=== PATIENT | male | born 1970 | race Caucasian/White ===

== ENCOUNTER 2017-11-09 14:17 | Observation (INO) ==
[2017-11-09] MEDS ORDERED: 0.9 % Sodium Chloride 1,000 ML IVC ONE (14:34)
[2017-11-09] MEDS ORDERED: Aspirin 325 MG TABLET PO ONE (14:34)
[2017-11-09 14:51] LABS: Hematocrit 45.4 % (37.5-50.1); Hemoglobin 14.7 g/dL (12.9-16.9); Immature Granulocytes % 0.3 % (0-4); Lymphocytes % 24.5 %; Mean Corpuscular HGB Conc 32.4 g/dL (31.6-35.5); Mean Corpuscular Hemoglobin 26.5 pg (28.0-33.3); Mean Corpuscular Volume 81.9 fL (83.0-100.0); Mean Platelet Volume 9.6 fL (9.4-12.4); Monocytes % 10.8 %; Platelet Count 291 K/mcL (140-400); Red Blood Count 5.54 M/mcL (4.19-5.50); Red Cell Distribution Width 13.6 % (11.5-14.5); Segmented Neutrophils % 58.2 %
[2017-11-09 14:52] LABS: Basophils # 0.1 K/mcL (0.0-0.2); Basophils % 0.9 %; Eosinophils # 0.5 K/mcL (0.0-0.6); Eosinophils % 5.3 %; Lymphocytes # 2.1 K/mcL (0.6-4.6); Monocytes # 0.9 K/mcL (0.0-1.3)
[2017-11-09 15:01] LABS: INR 1.2; Prothrombin Time 13.8 Seconds (9.4-12.1)
[2017-11-09 15:03] LABS: Activated Partial Thrombo Time 31.6 Seconds (26.0-36.0)
[2017-11-09 15:12] LABS: Troponin I < 0.03 ng/mL (< 0.04)
[2017-11-09 15:15] LABS: BUN/Creatinine Ratio 16 (6-26); Blood Urea Nitrogen 16 mg/dL (6-20); Calcium 9.3 mg/dL (8.6-10.3); Carbon Dioxide 24 mEq/L (23-29); Chloride 103 mEq/L (98-107); Glucose 140 mg/dL (70-105); Osmolality,Calculated 287 (280-300); Potassium 4.1 mEq/L (3.5-5.1); Sodium 137 mEq/L (136-145); eGFR For Non-African Americans > 60 (> 60)
[2017-11-09 15:26] LABS: Thyroid Stimulating Hormone 2.575 mcIU/mL (0.340-5.600)
[2017-11-09] MEDS ORDERED: Isovue-370 500 ML INFUS..BTL IV ONE (15:34)
--- NOTE | 2017-11-09 16:12 | Emergency Department Note ---
Disposition Clinical Impression: Atrial fibrillation with RVR, New onset a-fib, Abnormal CT of the chest Disposition: Admitted As Inpatient Condition: Good Referrals: Caroline Slade CNP [Primary Care Provider] - Forms: ED Satisfaction Letter General Adult HPI - General Chief complaint: ED Arrhythmia/Palpitations Stated complaint: CP/ A-fib Time Seen by Provider: 11/09/17 14:34 Source: patient Limitations: no limitations Nursing Notes Reviewed: Yes Vital Signs Reviewed: Yes - History of Present Illness HPI Narrative: Patient presents today for evaluation of chest pain and palpitations. Patient was seen yesterday for evaluation of chest pain she describes is in center of his chest and one or 2. Nothing makes chest pain better or worse. Also not better with or worse with exertion. Not worse food. Not worse sitting up or lying down. Patient's initial presentation today is for palpitations. Patient' s heart rate 160. Patient with A. fib RVR. Patient with no previous diagnosis of this. Patient has had episodes of palpitations in the past. The patient has no family history of A. fib or WPW. The patient does not have any history of PE and no family history of predisposition to venous thrombus embolism. Pain Scale: 0 - Related Data Home Medications Medication Instructions Recorded Confirmed No Known Home Drugs 11/09/17 11/09/17 Allergies Allergy/AdvReac Type Severity Reaction Status Date / Time No Known Allergies Allergy Verified 12/08/16 08:47 Review of Systems: As Per HPI Constitutional: Denies: fever, chills Cardiovascular: Reports: chest pain, palpitations, dyspnea on exertion Respiratory: Reports: dyspnea. Denies: cough Gastrointestinal: Denies: abdominal pain, nausea, vomiting Genitourinary: Denies: urgency Musculoskeletal: Denies: back pain, neck pain Integumentary: Denies: rash, abrasion Neurological: Denies: headache Endocrine: Denies: fatigue Past Medical History - Past Medical History Medical history: Reports: hyperlipidemia Surgical history: Reports: bariatric surgery Psychiatric history: Reports: no psych history - Social History Smoking Status: Never smoker Smokeless Tobacco Status: No Alcohol use: Reports: none Drug use: Reports: none Physical Exam General: Mild dyspnea and discomfort secondary to tachycardia Head: Normocephalic Atraumatic Eyes: PERRL, EOMI ENT: Airway patent, no stridor Neck: supple, Chest: Lungs clear to auscultation bilateral Cardiac: Tachycardia and irregular rhythm Abdomen: soft, nontender, nondistended; no guarding, rebound, or tenderness to percussion Musculoskeletal: Calves symmetric, nontender, no palpable cord Skin: No rash, normal skin tone Neuro: Alert and Oriented to person, place, and time; - General Limitations: no limitations General appearance: alert Course - Reevaluation(s) Reevaluation #1: Patient was given Cardizem and placed on a drip with resolution of his atrial fibrillation. Patient now in sinus rhythm. Patient's blood work is otherwise unremarkable. He does have concern because of his mother having abnormal lung mass causing her to have significant cardiac and pulmonary problems. At this point the patient's symptoms are otherwise unexplained. He continues to have this nondescript chest pain in the center of his chest. We did perform a CTA which was negative. Patient does have lymph nodes that will need reevaluation in 3-6 months. Patient has been notified of this at bedside. Family present. Patient be admitted to the hospital service for further evaluation. Patient's chads 2 score - Consultations Consultation #1: Discussed with hospitalist. Patient except for admission. Vital Signs Temperature 97.6 F 11/09/17 14:21 Pulse Rate 162 11/09/17 14:21 Respiratory Rate 18 11/09/17 14:21 Blood Pressure 146/95 11/09/17 14:21 O2 Sat by Pulse Oximetry 97 11/09/17 14:21 Temperature 97.6 F 11/09/17 14:21 Pulse Rate 62 11/09/17 17:52 Respiratory Rate 16 11/09/17 17:52 Blood Pressure 121/82 11/09/17 17:52 O2 Sat by Pulse Oximetry 96 11/09/17 17:52 Oxygen Delivery Oxygen Delivery Room Air Medical Decision Making - Medical Records Medical records reviewed: Yes I reviewed the patient's medical records. - Lab Data Lab results reviewed: Yes I reviewed the patient's lab results. Result diagrams: 11/09/17 14:34 11/09/17 14:34 Lab Results 11/09/17 11/09/17 11/09/17 Range/Units 14:34 14:34 14:34 WBC 8.7 (4.3-11.1) K/mcL RBC 5.54 H (4.19-5.50) M/mcL Hgb 14.7 (12.9-16.9) g/dL Hct 45.4 (37.5-50.1) % MCV 81.9 L (83.0-100.0) fL MCH 26.5 L (28.0-33.3) pg MCHC 32.4 (31.6-35.5) g/dL RDW 13.6 (11.5-14.5) % Plt Count 291 (140-400) K/mcL MPV 9.6 (9.4-12.4) fL Immature Gran % 0.3 (0-4) % Seg Neutrophils % 58.2 % Lymphocytes % 24.5 % Monocytes % 10.8 % Eosinophils % 5.3 % Basophils % 0.9 % Neutrophils # 5.0 (1.6-8.9) K/mcL Lymphocytes # 2.1 (0.6-4.6) K/mcL Monocytes # 0.9 (0.0-1.3) K/mcL Eosinophils # 0.5 (0.0-0.6) K/mcL Basophils # 0.1 (0.0-0.2) K/mcL PT 13.8 H (9.4-12.1) Seconds INR 1.2 APTT 31.6 (26.0-36.0) Seconds Sodium 137 (136-145) mEq/L Potassium 4.1 (3.5-5.1) mEq/L Chloride 103 (98-107) mEq/L Carbon Dioxide 24 (23-29) mEq/L BUN 16 (6-20) mg/dL Creatinine 1.00 (0.70-1.30) mg/dL Est GFR ( Amer) > 60 (> 60) Est GFR (Non-Af Amer) > 60 (> 60) BUN/Creatinine Ratio 16 (6-26) Glucose 140 H (70-105) mg/dL Calculated Osmolality 287 (280-300) Calcium 9.3 (8.6-10.3) mg/dL Magnesium 2.1 (1.6-2.6) mg/dL Troponin I < 0.03 (< 0.04) ng/mL TSH 2.575 (0.340-5.600) mcIU/mL - Radiology Data Radiology results reviewed: Yes I reviewed the patient's radiology results. - EKG Data EKG #1 EKG attestation: Yes I reviewed and interpreted this EKG. EKG results narrative: EKG shows atrial fibrillation with RVR with a ventricular rate of 162. QRS 97. QTC 370. Patient has no significant ST elevations or depressions. EKG #2 EKG attestation: Yes I reviewed and interpreted this EKG. EKG results narrative: EKG shows sinus rhythm with ventricular rate 67. AL 159. QRS 90. QTC 404. No ST elevations or depressions.
[2017-11-09 17:23] LABS: Magnesium 2.1 mg/dL (1.6-2.6)
[2017-11-09] MEDS ORDERED: Naloxone 0.4 MG/ML INJ IVP PRN (19:11)
--- NOTE | 2017-11-09 20:55 | Internal Med History&Physical ---
Date of Encounter: 11/09/17 Time of Encounter: 19:20 Internal Medicine - H&P: HPI Chief complaint: palpitations History of present illness: Mr. London is a 46 year old male with past medical history of morbid obesity status post bariatric surgery presented to the ED with palpitation. He was actually evaluated in the ED for similar complaints yesterday. He has been experiencing palpitation for the last several days along with chest pain. Substernal, non-radiating, no aggravating/relieving factors, 2-3/10 in intensity. Only happens when he gets palpitation. Denies any shortness of breath, cough, sputum production, fever/chills, or nausea/vomiting. No GI/ symptoms. In the ER, he had a heart rate of 162 but otherwise afebrile and normotensive. EKG showed A. fib with RVR. Other laboratory workup was largely negative including negative troponin and normal TSH. Electrolytes within normal limits. He was started on diltiazem drip and converted to normal sinus rhythm at the time of my interview. He is admitted for further management. Past Med Surg Social Fam HX - Past Medical History Medical history: hyperlipidemia Psychiatric history: no psych history - Past Surgical History Surgical History: bariatric surgery Additional surgical history: r shoulder surgery Bariatric sx - Social History Smoking Status: Never smoker Smokeless Tobacco Status: No Alcohol use: none Drug use: none Internal Medicine - H&P: Meds No Known Home Drugs 11/09/17 [History] 3 Allergy/AdvReac Type Severity Reaction Status Date / Time No Known Allergies Allergy Verified 12/08/16 08:47 All Systems PM: A 10-system review of systems was performed and is negative for pertinent findings except as documented above in the HPI. - Constitutional Vitals: Temp Pulse Resp BP Pulse Ox 97.6 F 76 16 124/76 96 11/09/17 14:21 11/09/17 20:00 11/09/17 20:13 11/09/17 20:13 11/09/17 19:05 Exam: General: Alert and oriented HEENT:EOM, pupils equal, round, and reactive. Cardiovascular:Normal S1 & S2, no murmurs or gallops. No JVD. Pulse regular. Lungs:Normal breath sounds, no wheezes or crackles. Abdomen:Soft, non-tender, no rigidity. Extremities:No deformity, no edema or tenderness, no joint swelling. Neurological:Normal cognition and motor skills. Skin:Normal color, no rash, no lesions. Pulses:Carotid and radial pulses normal +2. Rest of the physical exam is non-contributory Internal Med - H&P Results - Labs CBC & Chem 7: 11/09/17 14:34 11/09/17 14:34 - Assessment and plan (1) Atrial fibrillation with RVR Current Visit: Yes Status: Acute Assessment and plan: New-onset CHADSVASC score of 0 for now, unknown LV function or presence of DM Currently on diltiazem drip at 10 mg per hour, in sinus rhythm. Continue for now , can transition to oral equivalent tomorrow morning telemetry overnight Echocardiogram for LV function, check A1c recalculate score tomorrow for candidacy of AC trend troponin to rule out ACS (2) Chest pain Current Visit: No Status: Acute Assessment and plan: Occurs only with palpitation Trend troponin and Echo as above Qualifiers: Chest pain type: unspecified Qualified Code(s): R07.9 - Chest pain, unspecified (3) Morbid obesity Current Visit: Yes Status: Acute Assessment and plan: Status post bariatric surgery Suspect underlying LOREN also contributing for afib recommended outpatient sleep study (4) DVT prophylaxis Current Visit: Yes Status: Acute Assessment and plan: scd - Time Spent With Patient Total time spent is greater than 50% in coordination of care (as documented) at patient's floor/unit and/or counseling patient:
[2017-11-09] MEDS ORDERED: Perflutren Lipid Microsphere 1.3 ML in 0.9 % Sodium Chloride 8.7 ML IVP ONE (22:15)
[2017-11-09] MEDS ORDERED: Perflutren Lipid Microsphere 2 ML VIAL ONE (22:21)
[2017-11-10 05:02] LABS: Basophils # 0.1 K/mcL (0.0-0.2); Basophils % 1.1 %; Eosinophils # 0.6 K/mcL (0.0-0.6); Eosinophils % 7.8 %; Hematocrit 40.1 % (37.5-50.1); Hemoglobin 12.8 g/dL (12.9-16.9); Immature Granulocytes % 0.4 % (0-4); Lymphocytes # 2.1 K/mcL (0.6-4.6); Lymphocytes % 28.9 %; Mean Corpuscular HGB Conc 31.9 g/dL (31.6-35.5); Mean Corpuscular Hemoglobin 26.4 pg (28.0-33.3); Mean Corpuscular Volume 82.9 fL (83.0-100.0); Mean Platelet Volume 9.7 fL (9.4-12.4); Monocytes # 0.8 K/mcL (0.0-1.3); Monocytes % 10.7 %; Neutrophils # 3.7 K/mcL (1.6-8.9); Platelet Count 252 K/mcL (140-400); Red Blood Count 4.84 M/mcL (4.19-5.50); Red Cell Distribution Width 13.7 % (11.5-14.5); Segmented Neutrophils % 51.1 %
[2017-11-10 05:19] LABS: BUN/Creatinine Ratio 21 (6-26); Blood Urea Nitrogen 17 mg/dL (6-20); Calcium 8.8 mg/dL (8.6-10.3); Carbon Dioxide 23 mEq/L (23-29); Chloride 105 mEq/L (98-107); Glucose 148 mg/dL (70-105); Magnesium 1.9 mg/dL (1.6-2.6); Osmolality,Calculated 288 (280-300); Potassium 3.9 mEq/L (3.5-5.1); Sodium 137 mEq/L (136-145); eGFR For Non-African Americans > 60 (> 60)
--- NOTE | 2017-11-10 10:02 | Electrocardiograph Report ---
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
--- NOTE | 2017-11-10 10:05 | Electrocardiograph Report ---
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
[2017-11-10 10:42] LABS: Estimated Average Glucose 126 mg/dl
[2017-11-10 11:35] VITALS: BP 142/97
--- NOTE | 2017-11-10 11:51 | Discharge Summary ---
<Marcella Jenkins - Last Filed: 11/10/17 15:11> - NOTES TO OUTPATIENT PROVIDER Notes to Outpatient Provider: patient started on ASA 81mg and cardizem 120mg due to new onset AFib, converted to sinus rhythym in less than 24 hours. Nonspecific mediastinal lymphadenopathy will require repeat CT in 3-6 months per radiology recommendations. Date of Encounter: 11/10/17 Time of Encounter: 11:48 - Discharge Diagnosis (1) Atrial fibrillation with RVR Priority: Primary Status: Acute (2) Chest pain Priority: Secondary Status: Acute Qualifiers: Chest pain type: unspecified Qualified Code(s): R07.9 - Chest pain, unspecified (3) Morbid obesity Priority: Secondary Status: Acute (4) DVT prophylaxis Priority: Secondary Status: Acute (5) Abnormal CT of the chest Priority: Secondary Status: Acute Hospital course: Mr. London is a 46 year old male who presented to the emergency department on 11/09 with complaints of shortness of breath and palpitations. He has a history of Satish-en-Y gastric bypass, LOREN, and hyperlipidemia. Initial workup for ACS and PE including troponin 2, CTA , chest x-ray and lab work were unremarkable. EKG revealed evidence of A. fib with RVR which is new onset. Patient was admitted and underwent echocardiogram which revealed EF of 60% and an A1c of 6.0. Initially he was placed on Cardizem drip and converted to sinus rhythm overnight. He developed bradycardia with continued use of the Cardizem drip ang it was discontinued. Patient has a CHADS VASC of zero but given his LOREN and questionable risk of paroxysmal nature of his A. fib will send him home on ASA 81 mg. For rhythm control prescribed Cardizem 120 mg daily. New-onset A. fib likely a result of his uncontrolled obstructive sleep apnea as he notes his snoring and apneic episodes at night have worsened since he has gained 30-40 pounds over the past year. Encouraged him to follow up with his primary care physician for repeat sleep study and to use his CPAP at night. Will require follow-up for nonspecific mediastinal lymphadenopathy shown on CT in 3-6 months. Encourage diet control for his prediabetic status and for weight loss. The patient will follow up with his primary care physician within the next week for further evaluation. Patient agrees with and understands the course of treatment plan including plan for discharge and follow-up. All questions answered. Discharge discussed with: patient, family, nurse Time spent discussing smoking cessation with patient: 3 to 10 minutes (patient is nonsmoker) - Time Spent with Patient Total time spent providing and/or coordinating discharge services: Greater than 30 minutes - Discharge Medications Prescriptions: Aspirin 81 mg PO DAILY 30 Days #30 tab.chew Diltiazem CD (24hr) [Cardizem CD] 120 mg PO DAILY 30 Days #30 cap.er.24h Home Medications: Aspirin 81 mg PO DAILY 30 Days #30 tab.chew 11/10/17 [Rx] Diltiazem CD (24hr) [Cardizem CD] 120 mg PO DAILY 30 Days #30 cap.er.24h [Rx] Allergies/Adverse Reactions: 3 Allergy/AdvReac Type Severity Reaction Status Date / Time No Known Allergies Allergy Verified 12/08/16 08:47 Date of admission: 11/09/17 19:58 Primary care physician: Caroline Slade CNP Discharging clinician: Marcella Jenkins Anticipated date of discharge: 11/10/17 - Constitutional Vitals: Temp Pulse Resp BP Pulse Ox 97.9 F 55 16 142/97 94 11/10/17 11:33 11/10/17 11:33 11/10/17 11:33 11/10/17 11:33 11/10/17 11:33 General appearance: Present: A&O X 3, pleasant, no acute distress, obese, answers questions appropriately Exam: General: WEll appearing white male sitting upright in bed. Conversant, No Apparent Distress, able to speak in full sentences and follow commands Neck: No JVD, trachea midline HEENT: PERRL, normocephalic, atraumatic Cardiac: Regular Rate in 60s, sinus Rhythm, Normal S1 and S2, No murmurs appreciated Pulmonary: Normal Breath Sounds, No Wheezes, Rales, or Rhonchi, Not in respiratory distress Abdomen: soft, tontender, no bruits, no guarding Neuro: Alert and responsive, No focal deficits noted Vascular: Normal capillary refill Skin: No rashes noted on visualized skin Musculoskeletal: No Chest Wall Tenderness Extremities: No Clubbing, No Cyanosis, No Edema, Normal Pulses Psych: Normal mood, pleasant, conversant - Patient Status Disposition: Home, Self-Care Condition: Good Functional capacity at discharge: independent ambulation Overall status at discharge: patient is back to baseline - Discharge Instructions Instructions: Atrial Fibrillation (DC), Chest Pain (DC) Follow Up With: Caroline Slade CNP [Primary Care Provider] - 11/16/17 12:00 pm Additional Instructions: - Take Aspirin 81mg and cardizem 120mg, one each per day. - Please follow up with your primary care physician within the next week. - Please return to the emergency department should you develop any more chest pain, shortness of breath, or any other symptoms worrisome to you. - Please ensure you follow up on the nonspecific lymph node enlargement seen on your CT scan. Recommend following up with repeat imaging in 3-6 months. - Diet and Activity Activity: increase activity as tolerated Diet: advance to your usual diet - VTE Documentation of Mechanical Device: Intermittent pneumatic compression device <Sherry Giraldo - Last Filed: 11/10/17 17:44> Date of Encounter: 11/10/17 - Discharge Diagnosis (1) Chest pain Status: Acute Qualifiers: Chest pain type: unspecified Qualified Code(s): R07.9 - Chest pain, unspecified (2) Atrial fibrillation with RVR Status: Acute (3) Morbid obesity Status: Acute (4) DVT prophylaxis Status: Acute Hospital course: Mr. London is a 46 year old male - Time Spent with Patient Total time spent providing and/or coordinating discharge services: Date of admission: 11/09/17 19:58 Primary care physician: Caroline Slade CNP - Constitutional Vitals: Temp Pulse Resp BP Pulse Ox 97.9 F 55 16 142/97 94 11/10/17 11:33 11/10/17 11:33 11/10/17 11:33 11/10/17 11:33 11/10/17 11:33 - Attending Attestation I examined this patient and my medical decision-making was reviewed with the Resident Physician Dr. Thomas. I agree with the documented findings, disposition and treatment plan as described except to the extent set forth below. Mr. London is a 46 year old male who presented to the emergency department on 11/09 with complaints of shortness of breath and palpitations. Pt happened to be in Afib with RVR, which resolved and converted to NSR with Cardizem gtt. His HR went down to 50's this morning , later improved into 70's. So started him on PO Cardizem CD 120mg PO daily. Negative trop, no ischemic changes on EKG. So will dc him home in stable condition today. Gen: A, A, O x 3 Chest: Diminished BS b/l Heart: S1S2+ RRR No murmurs
--- NOTE | 2017-11-10 17:33 | Electrocardiograph Report ---
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
== END 2017-11-10 13:51 | disposition home or self-care (01) ==
LOC: EMEROO 14:17 → 2NENU 14:17
PROVIDERS: ADMIT Internal Medicine Cardiovascular Disease; ATTEND Internal Medicine Cardiovascular Disease